=== PATIENT | male | born 1980 | race Hispanic/Latino ===

== ENCOUNTER 2021-04-03 20:53 | Emergency (ER) | payer OTHER ==
[~2021-04-03] VITALS: Ht 162.6 cm; Wt 81.6 kg
[2021-04-03 21:14] VITALS: BP 134/88
[2021-04-03] MEDS ORDERED: MECL-160 PO (22:10)
[2021-04-03] MEDS ORDERED: ONDA4TAB10 PO (22:10)
[2021-04-03] MEDS ORDERED: METO-296 PO (22:10)
[2021-04-03] MEDS ORDERED: MECLIZINE HCL 25 MG TABLET ONE (22:12)
[2021-04-03] MEDS ORDERED: ONDANSETRON 4MG TABLET ONE (22:13)
[2021-04-03] MEDS ORDERED: METOCLOPRAMIDE 10 MG TABLET ONE (22:13)
[2021-04-03] MEDS ORDERED: ONDANSETRON 4MG TABLET PO ONE (22:30)
[2021-04-03] MEDS ORDERED: METOCLOPRAMIDE 10 MG TABLET PO ONE (22:30)
[2021-04-03] MEDS ORDERED: MECLIZINE HCL 25 MG TABLET PO ONE (22:30)
== END 2021-04-03 22:20 | disposition home or self-care (01) ==
LOC: EDH 20:53
DX: H81.10 Benign paroxysmal vertigo, unspecified ear (principal); R11.2 Nausea with vomiting, unspecified
CPT/HCPCS: Q0162